=== PATIENT | male | born 1955 | race Caucasian/White ===

== ENCOUNTER 2016-10-22 16:39 | Emergency (ER) | payer OTHER ==
[~2016-10-22] VITALS: Ht 170.2 cm; Wt 78.2 kg
--- NOTE | 2016-10-22 16:46 | ED.REPORT ---
HPI-General Illness Date of Service Oct 22, 2016 ED Provider: Maxx Lock MD 61 y/o male with a hx of IL (w/ 2 stents), bilateral femoral artery stents, COPD and left C3-C4 and bilateral C5-C6 laminectomy at [facility] yesterday presents to the ED complaining of a gradual onset of substernal chest pain that radiates to the left side of his chest and down his left arm for the last 8 hours while he was sitting in his car. No specific factors seem to worsen or improve his pain. He initially rated the pain 10/10 in severity but reports relief after getting Nitroglycerin in the ED. The pt has had similar sx before when he was diagnosed with IL. He denies SOB independent of the pain, fever, chills, weakness, constipation, diarrhea, vomiting, difficulty passing gas and blood in stool. Nursing Notes Stated Complaint: POSS HEART ATTACK Nursing Notes Reviewed: Yes Allergies: Coded Allergies: codeine (Verified Allergy, Intermediate, rash, 10/22/16) General Time Seen by MD: 16:45 Chief Complaint Chest pain Hx Obtained From: Patient Arrived By: Walk-in Sudden in Onset?: Yes Onset Occurred: 5 - 8 hours ago Symptom Duration: Since onset Location: : Chest Quality: Painful Radiation: : Arm left Severity: Current: Pain level 8 out of 10 Severity: Maximum: Pain level 10 out of 10 Recent Healthcare: Recent doctor visit Similar Sx Previous: Yes Past Medical History Past Medical History PTSD IL Reports: COPD, Hypertension Past Surgical History Left C3-C4 and bilateral C5-C6 laminectomy IL (stent placed in 2003 and another in 2012) Femoral artery stents placed bilaterally Family History Both parents had IL Older sister had CHF Smoking History Current Every Day Smoker (trying to quit. 100 pack per year history) Social History Lives in [place] Alcohol Use: Denies alcohol use Drug Use: THC Other Social History: Ambulatory Status Independent Review of Systems Full Review of Systems Constitutional: Denies: Chills, Fever, Weakness - generalized Respiratory: Denies: Shortness of breath Cardiovascular: Reports: Chest pain GI: Denies: Constipation, Diarrhea, Hematochezia, Melena, Vomiting Complete sys rev & neg: except as marked. Physical Exam Nursing note and vitals reviewed. Constitutional: Well-developed, well-nourished. Not diaphoretic. Head: Normocephalic and atraumatic. Mouth/Throat: Oropharynx is clear and moist. No oropharyngeal exudate. Eyes: EOM are normal. Pupils are equal, round, and reactive to light. Neck: Supple, no tracheal deviation. Cardiovascular: Normal rate, regular rhythm. Equal and intact distal pulses throughout. Pulmonary/Chest: Effort normal. No respiratory distress. Coarse breath sounds throughout. Abdominal: Soft. No distension. There is no tenderness, rebound, or guarding. Bowel sounds present. Musculoskeletal: Range of motion grossly intact, moving all extremities. No edema or tenderness appreciated. Neurological: AOx3. Grossly nonfocal exam. Strength and sensation intact and equal to bilateral upper and lower extremities. Skin: Warm and dry, no rashes or pallor appreciated. Psychiatric: Appropriate mood and affect. Behavior appears normal. Vital Signs Vital Signs Date Time Temp Pulse Resp B/P Pulse Ox O2 Delivery O2 Flow Rate FiO2 10/22/16 19:36 87 17 133/62 97 Room Air 10/22/16 18:47 85 12 126/80 95 Nasal Cannula 2 10/22/16 17:01 87 15 150/68 98 Room Air 10/22/16 16:49 37.1 86 13 153/102 97 Room Air Interpretation & Diagnostics Lab Results Interpretation Result Diagram: 10/22/16 1715 10/22/16 1715 Test 10/22/16 17:15 10/22/16 18:30 White Blood Count 19.5th/mm3 (3.8-10.1) Red Blood Count 4.72mil/mm3 (4.40-5.80) Hemoglobin 13.8g/dL (13.8-17.2) Hematocrit 41.7% (41.0-50.0) Mean Corpuscular Volume 88.3fL (81-100) Mean Corpuscular Hemoglobin 29.2pg (27.0-35.0) Mean Corpuscular Hemoglobin Concent 33.1% (32.0-37.0) Red Cell Distribution Width 15.6% (12.3-15.4) Platelet Count 171bil/L (150-400) Neutrophils (%) (Auto) 75.3% (40-74) Lymphocytes (%) (Auto) 12.5% (14-46) Monocytes (%) (Auto) 11.6% (4-12) Eosinophils (%) (Auto) 0.1% (0-5) Basophils (%) (Auto) 0.1% (0-3) Prothrombin Time 10.4sec (8.1-12.5) Prothromb Time International Ratio 0.97ratio Activated Partial Thromboplast Time 27.3sec (22.8-33.0) Sodium Level 141mEq/L (134-144) Potassium Level 3.8mEq/L (3.5-5.2) Chloride Level 100mEq/L (97-108) Carbon Dioxide Level 26mmol/L (18-29) Blood Urea Nitrogen 7mg/dL (8-27) Creatinine 0.76mg/dL (0.76-1.27) Estimat Glomerular Filtration Rate 110mL/min (>59) Glucose Level 130mg/dL (60-99) Calcium Level 9.7mg/dL (8.5-10.1) Magnesium Level 1.9mg/dL (1.6-2.6) Total Bilirubin 0.4mg/dL (0.0-1.2) Aspartate Amino Transf (AST/SGOT) 35U/L (0-50) Alanine Aminotransferase (ALT/SGPT) 16U/L (0-44) Alkaline Phosphatase 106U/L (25-160) Troponin T < 0.010ug/L (0.0-0.011) Total Protein 7.5g/dL (6.4-8.4) Albumin 4.0g/dL (3.4-5.0) Hold Urine Received (Received) ECG Interpretation ECG Interpretation: Normal sinus rhythm. Rate 79. Abnormal R-wave progression ,early transition. Time: 16:46 Interpreted by: ED physician X-Ray Chest Interpretation Chest Xray Interpretation: IMPRESSION: No acute disease is seen in the upright portable chest. Dictated by: Major Sams M.D. on 10/22/2016 at 18:34 Approved by: Major Sams M.D. on 10/22/2016 at 18:35 View: Portable Interpretation / Wet Read by: Interpret - Radiologist Re-Eval/Medical Decision Med Decision/Clinical Course In summary, 61M with a complex PMHx including CAD who presents to the ED for evaluation of chest pain radiating down his left arm. Differential includes ACS , PE, PTX, aortic dissection, myocarditis/pericarditis, abdominal etiology such as cholecystitis, MSK pain. Pain has been constant since onset hours ago; troponin negative. High risk story given his history and description of pain. Given NTG w/ some relief here in the ED. EKG demonstrates sinus rhythm with no acute ischemic changes. Clinical history not c/w PE. No evidence of pneumothorax on chest x-ray or exam. Pain not described as tearing through to the back, CXR w/ no evidence of widened mediastinum, normal neuro exam, and equal pulses to bilateral upper and lower extremities; aortic dissection seems very unlikely. Neither clinical presentation, exam, or EKG seem c/w pericarditis or myocarditis. No abdominal pain or tenderness. Rest of labs reviewed, notable only for a WBC of 19.5. Patient unable to receive aspirin, clopidogrel, or heparin given his recent surgery. Given patient's high risk, discussed with cardiology and they agreed that he would need admission for further evaluation and management, and to initiate a nitroglycerin drip. This was ordered. Hospitalist accepted the patient for admission. They will need to discuss the use of heparin, aspirin, or occult playground with the patient's neurosurgeons given his recent surgery. While awaiting admission, the patient stated that he would like to leave AGAINST MEDICAL ADVICE. I discussed at length with the patient the risks of doing so given his concerning cardiac history, persistent pain and highly concerning clinical presentation. I discussed the risks of . Patient insisted that he would still like to leave and nothing could change his mind. Informed the patient that if he were to change his mind he should return to the ED immediately. Discussed the need for very close outpatient follow-up if he did not change his mind. Patient verbalized understanding and agreement, signed out AGAINST MEDICAL ADVICE. Source of Hx: Old records Time of Eval: 17:39 Re-Evaluation/Progress Note: Rechecked pt. Discussed lab results, diagnosis and plan to admit. The pt understands and agrees with the plan. All questions answered. Time of Eval: 19:05 Re-Evaluation/Progress Note: Rechecked pt. The pt insists he wants to be discharged. He is not giving any particular reason for why he is denying admission. F/U instructions and RTER warning given. All questions addressed. Consultation #1: Referral / Consult Name: Nona Oliveros MD Consulted With: Cardiology Call Returned at: 18:50 Note: Dr. Oliveros recommends admission and close consult with neurosurgeon to determine when he can be started on Aspirin and Plavix. She also recommended Nitroglycerin drip, which has been ordered. Consultation #2: Referral / Consult Name: ShaunSai chambers Consulted With: Hospitalist Call Returned at: 18:55 Financial Analysis Consultant: Will see patient, Agrees with eval, Agrees with plan, Accepts admit Note: Dr. Frazier accepts admissiona dn states he will contact neurosurgeon. Counseled Regarding: Diagnosis, Lab results, Need for follow-up, When/why to return to ED Discharge & Departure Primary Impression: Unstable angina Additional Impression: Acute coronary syndrome Disposition: AGAINST MEDICAL ADVICE Discharge Condition All VS Reviewed: Yes Condition: Critical Patient Instructions: Acute Coronary Syndrome (ED), Against Medical Advice (ED) Additional Instructions: You have been seen in the emergency department for evaluation of your chest pain. As we discussed, I am concerned that you have a condition known as unstable angina, which is a heart emergency that requires admission to intensive care. I have discussed the risks and the benefits of leaving with you , including, but not limited to cardiac arrest, permanent injury, heart attack, and . You would still like to go home. Please return to the emergency department immediately if you change your mind and we will be happy to see you. Please follow-up with your general office assistant as soon as possible. Referrals: [facility] Crit Care Except Billable Proc Time Spent: 30-74 minutes Services Performed: Patient management by me, Time spent at bedside, Reviewing test results, Reviewing imaging, Discussing patient care, Documentation in record, Time with fam/surrogate Scribe Attestation Portions of this note were transcribed by Giana Dang. I,, personally performed the history, physical exam and medical decision-making;I reviewed and confirmed the accuracy of the information in the transcribed note. Signed by Siena Tejada. 10/22/16 19:29 Maxx Lock MD Oct 22, 2016 16:46 Giana Dang Oct 22, 2016 16:59
[2016-10-22 16:49] VITALS: BP 153/102; PULSE 86; RESP 13; O2SAT 97
[2016-10-22 17:01] VITALS: BP 150/68; PULSE 87; RESP 15; O2SAT 98
[2016-10-22] MEDS ORDERED: 0.9% Sodium Chloride 1,000 ML IV ONE (17:19)
[2016-10-22 17:29] LABS: BASOPHILS % (AUTO) 0.1 % (0-3); EOSINOPHILS % (AUTO) 0.1 % (0-5); MONOCYTES % (AUTO) 11.6 % (4-12); Mean Corpuscular Hemoglobin 29.2 pg (27.0-35.0); Mean Corpuscular Volume 88.3 fL (81-100); NEUTROPHILS % (AUTO) 75.3 % (40-74); Platelet Count 171 bil/L (150-400)
[2016-10-22 17:54] LABS: INR 0.97 ratio
[2016-10-22 18:01] LABS: TROPONIN T < 0.010 ug/L (0.0-0.011)
[2016-10-22 18:10] LABS: Magnesium 1.9 mg/dL (1.6-2.6)
--- NOTE | 2016-10-22 18:37 | DRSVH ---
PROCEDURE: X-RAY CHEST ONE VIEW, PORTABLE ([id number]) INDICATIONS: chest pain TECHNIQUE: One view of the chest was acquired. COMPARISON: None. FINDINGS: Surgical changes and devices: monitoring manager leads are seen over the chest Lungs and pleura: No pleural effusions or pneumothorax. Lungs are clear. Mediastinum: Mediastinal contours appear normal. Heart size is normal. Bones and chest wall: No suspicious bony lesions. Overlying soft tissues appear unremarkable. IMPRESSION: No acute disease is seen in the upright portable chest. Dictated by: Major Sams M.D. on 10/22/2016 at 18:34 Approved by: Major Sams M.D. on 10/22/2016 at 18:35
[2016-10-22 18:47] VITALS: BP 126/80; PULSE 85; RESP 12; O2SAT 95
[2016-10-22] MEDS ORDERED: Nitroglycerin 50 mg/250 mL D5W 50,000 MCG in IV Premix 1 EACH IV ONE (18:48)
[2016-10-22 19:36] VITALS: BP 133/62; PULSE 87; RESP 17; O2SAT 97
== END 2016-10-22 19:38 | disposition left against medical advice (07) ==
LOC: SED 16:39
DX: I20.0 Unstable angina (principal); I25.10 Atherosclerotic heart disease of native coronary artery without angina pectoris; I25.2 Old myocardial infarction; I10 Essential (primary) hypertension; F43.10 Post-traumatic stress disorder, unspecified; F17.200 Nicotine dependence, unspecified, uncomplicated; Z88.5 Allergy status to narcotic agent
CPT/HCPCS: 36415; 71010; 80053; 83735; 84484; 85025; 85610; 85730; 93005; 96360; 99285; J7030